=== PATIENT | male | born 1935 | race Caucasian/White ===

== ENCOUNTER 2017-08-08 22:56 | Emergency (ER) | payer MEDICARE ==
[~2017-08-08] VITALS: Ht 177.8 cm; Wt 88.9 kg
[~2017-08-08 22:56] MED LIST: BP MED
[2017-08-08] MEDS ORDERED: CENTRUM SILVER1 EAC2 PO (23:13)
[2017-08-08] MEDS ORDERED: ALBU90OI INH (23:13)
[2017-08-08] MEDS ORDERED: BUDE6HFA INH (23:13)
[2017-08-08] MEDS ORDERED: Penlac6.6 ML (23:22)
[2017-08-09 00:34] LABS: BASOPHILS ABSOLUTE AUTO 0.06 K/mm3 (0.00-0.23); BASOPHILS PERCENT AUTO 1 % (0-2); EOSINOPHILS ABSOLUTE AUTO 0.55 K/mm3 (0.00-0.68); EOSINOPHILS PERCENT AUTO 7 % (0-6); Hematocrit 40.1 % (37.0-53.0); IMMATURE GRAN ABSOLUTE AUTO 0.03 K/mm3 (0.00-0.10); IMMATURE GRAN PERCENT AUTO 0 % (0-1); LYMPHOCYTES ABSOLUTE AUTO 2.51 K/mm3 (0.84-5.20); LYMPHOCYTES PERCENT AUTO 32 % (21-46); MONOCYTES PERCENT AUTO 13 % (4-13); Mean Corpuscular HGB 34.7 pg (26.0-34.0); Mean Corpuscular HGB Conc 34.9 g/dL (31.5-36.5); Mean Corpuscular Volume 100 fL (80-100); NEUTROPHILS ABSOLUTE AUTO 3.83 K/mm3 (1.96-9.15); NEUTROPHILS PERCENT AUTO 48 % (41-73); RDW Standard Deviation 44.1 fL (35.1-46.3); Red Blood Cell Count 4.03 M/mm3 (4.30-5.90); White Blood Cell Count 7.98 K/mm3 (4.00-11.30)
[2017-08-09 00:37] LABS: Mean Platelet Volume 9.2 fL (9.1-12.4); Platelet Count 213 K/mm3 (150-400)
[2017-08-09 00:47] LABS: Alanine Aminotransfer (ALT/SGP 24 U/L (12-78); Albumin/Globulin Ratio 1.2 (0.8-1.8); Alk Phos 67 U/L (50-136); Anion Gap 6 mmol/L (6-16); Aspartate Aminotrans (AST/SGOT 22 U/L (12-37); Bilirubin, Total 0.4 mg/dL (0.1-1.0); Blood Urea Nitrogen 9 mg/dL (8-24); Bun/Creatinine Ratio 9.8 (12.0-20.0); CO2, Blood 32 mmol/L (21-32); Calcium, Blood 8.9 mg/dL (8.5-10.1); Chloride, Blood 92 mmol/L (98-108); Creatinine, Blood 0.92 mg/dL (0.60-1.20); Globulin, Blood 3.3 g/dL (2.2-4.0); Glomerular Filtration Rate >60 (60-); Glucose, Blood 100 mg/dL (70-99); Sodium, Blood 130 mmol/L (136-145); Total Protein, Blood 7.3 g/dL (6.4-8.2); Troponin I <0.015 ng/mL (0.000-0.040)
[2017-08-09 01:21] LABS: pH Blood Arterial 7.43 (7.35-7.45)
[2017-08-09] MEDS ORDERED: Prednisone20 MG PO (03:00)
== END 2017-08-09 03:25 | disposition home or self-care (01) ==
LOC: ER 22:56
PROVIDERS: Emergency Medicine
DX: J44.1 Chronic obstructive pulmonary disease with (acute) exacerbation (principal); I10 Essential (primary) hypertension; Z87.891 Personal history of nicotine dependence; Z88.8 Allergy status to other drugs, medicaments and biological substances; Z79.899 Other long term (current) drug therapy; Z79.52 Long term (current) use of systemic steroids
CPT/HCPCS: 36415; 36600; 71046; 80053; 82803; 84484; 85025; 93005; 93010; 94644; 99283

== ENCOUNTER 2017-08-15 19:34 | Inpatient (IN) | payer MEDICARE ==
[~2017-08-15] VITALS: Ht 175.3 cm; Wt 92.6 kg
[~2017-08-15 19:34] MED LIST changes: +ALBU90OI INH; +BUDE6HFA INH; +CENTRUM SILVER1 EAC2 PO; +Penlac6.6 ML; +Prednisone20 MG PO
[2017-08-15 20:31] LABS: BASOPHILS ABSOLUTE AUTO 0.01 K/mm3 (0.00-0.23); BASOPHILS PERCENT AUTO 0 % (0-2); EOSINOPHILS ABSOLUTE AUTO 0.04 K/mm3 (0.00-0.68); EOSINOPHILS PERCENT AUTO 0 % (0-6); Hematocrit 39.5 % (37.0-53.0); Hemoglobin 14.2 g/dL (13.5-17.5); IMMATURE GRAN PERCENT AUTO 1 % (0-1); LYMPHOCYTES PERCENT AUTO 18 % (21-46); MONOCYTES ABSOLUTE AUTO 1.53 K/mm3 (0.16-1.47); MONOCYTES PERCENT AUTO 13 % (4-13); Mean Corpuscular HGB 35.2 pg (26.0-34.0); Mean Corpuscular HGB Conc 35.9 g/dL (31.5-36.5); Mean Corpuscular Volume 98 fL (80-100); Mean Platelet Volume 8.9 fL (9.1-12.4); NEUTROPHILS ABSOLUTE AUTO 7.82 K/mm3 (1.96-9.15); NEUTROPHILS PERCENT AUTO 67 % (41-73); Platelet Count 228 K/mm3 (150-400); RDW Coefficient Variation 12.3 % (11.7-14.2); RDW Standard Deviation 44.6 fL (35.1-46.3); Red Blood Cell Count 4.03 M/mm3 (4.30-5.90)
[2017-08-15 20:47] LABS: International Normalized Ratio 1.04; Prothrombin Time Results 10.8 Sec (9.7-11.5)
[2017-08-15 20:55] LABS: Alanine Aminotransfer (ALT/SGP 26 U/L (12-78); Albumin, Blood 3.2 g/dL (3.4-5.0); Albumin/Globulin Ratio 1.1 (0.8-1.8); Alk Phos 55 U/L (50-136); Anion Gap 11 mmol/L (6-16); Aspartate Aminotrans (AST/SGOT 18 U/L (12-37); Bilirubin, Total 0.4 mg/dL (0.1-1.0); Blood Urea Nitrogen 27 mg/dL (8-24); Bun/Creatinine Ratio 19.3 (12.0-20.0); CO2, Blood 25 mmol/L (21-32); Calcium, Blood 8.5 mg/dL (8.5-10.1); Chloride, Blood 92 mmol/L (98-108); Globulin, Blood 2.9 g/dL (2.2-4.0); Glomerular Filtration Rate 52 (60-); Glucose, Blood 95 mg/dL (70-99); Sodium, Blood 128 mmol/L (136-145); Total Protein, Blood 6.1 g/dL (6.4-8.2); Troponin I <0.015 ng/mL (0.000-0.040)
[2017-08-15] MEDS ORDERED: GUAI600T33 PO (22:54)
[2017-08-16] LABS: Influenza A Negative (NEGATIVE); Influenza B Negative (NEGATIVE)
[2017-08-16 04:13] LABS: BASOPHILS ABSOLUTE AUTO 0.01 K/mm3 (0.00-0.23); BASOPHILS PERCENT AUTO 0 % (0-2); EOSINOPHILS ABSOLUTE AUTO 0.01 K/mm3 (0.00-0.68); EOSINOPHILS PERCENT AUTO 0 % (0-6); Hematocrit 38.2 % (37.0-53.0); Hemoglobin 13.5 g/dL (13.5-17.5); IMMATURE GRAN ABSOLUTE AUTO 0.09 K/mm3 (0.00-0.10); IMMATURE GRAN PERCENT AUTO 1 % (0-1); LYMPHOCYTES ABSOLUTE AUTO 0.76 K/mm3 (0.84-5.20); LYMPHOCYTES PERCENT AUTO 9 % (21-46); MONOCYTES ABSOLUTE AUTO 0.29 K/mm3 (0.16-1.47); MONOCYTES PERCENT AUTO 3 % (4-13); Mean Corpuscular HGB 34.7 pg (26.0-34.0); Mean Corpuscular HGB Conc 35.3 g/dL (31.5-36.5); Mean Corpuscular Volume 98 fL (80-100); NEUTROPHILS ABSOLUTE AUTO 7.35 K/mm3 (1.96-9.15); NEUTROPHILS PERCENT AUTO 86 % (41-73); Platelet Count 196 K/mm3 (150-400); RDW Coefficient Variation 12.3 % (11.7-14.2); RDW Standard Deviation 44.3 fL (35.1-46.3); Red Blood Cell Count 3.89 M/mm3 (4.30-5.90); White Blood Cell Count 8.51 K/mm3 (4.00-11.30)
[2017-08-16 04:44] LABS: Alanine Aminotransfer (ALT/SGP 27 U/L (12-78); Albumin, Blood 3.1 g/dL (3.4-5.0); Alk Phos 52 U/L (50-136); Anion Gap 7 mmol/L (6-16); Aspartate Aminotrans (AST/SGOT 11 U/L (12-37); Bilirubin, Total 0.6 mg/dL (0.1-1.0); Blood Urea Nitrogen 27 mg/dL (8-24); Bun/Creatinine Ratio 24.1 (12.0-20.0); CO2, Blood 27 mmol/L (21-32); Calcium, Blood 8.3 mg/dL (8.5-10.1); Chloride, Blood 93 mmol/L (98-108); Creatinine, Blood 1.12 mg/dL (0.60-1.20); Glomerular Filtration Rate >60 (60-); Glucose, Blood 108 mg/dL (70-99); Potassium, Blood 4.7 mmol/L (3.5-5.5); Sodium, Blood 127 mmol/L (136-145); Total Protein, Blood 6.1 g/dL (6.4-8.2)
[2017-08-16 20:10] LABS: Adenovirus F 40/41 Not Detected (NOT DETECT); Astrovirus Not Detected (NOT DETECT); Campylobacter Sp Not Detected (NOT DETECT); Cryptosporidium Not Detected (NOT DETECT); Cyclospora Cayetanensis Not Detected (NOT DETECT); E. Coli O157 Not Detected (NOT DETECT); Entamoeba Histolytica Not Detected (NOT DETECT); Enteroaggregative E. coli-EAEC Not Detected (NOT DETECT); Enteropathogenic E. coli-EPEC Not Detected (NOT DETECT); Enterotoxigenic E. coli-ETEC Not Detected (NOT DETECT); Giardia Lamblia Not Detected (NOT DETECT); Norovirus GI/GII Not Detected (NOT DETECT); Plesiomonas Shigelloides Not Detected (NOT DETECT); Rotavirus A Not Detected (NOT DETECT); Salmonella Sp Not Detected (NOT DETECT); Sapovirus Not Detected (NOT DETECT); Shiga Toxin-prod E. coli-STEC Not Detected (NOT DETECT); Shigella/Enteroin E. coli-EIEC Not Detected (NOT DETECT); Vibrio Cholerae Not Detected (NOT DETECT); Vibrio Sp Not Detected (NOT DETECT); Yersinia Enterocolitica Not Detected (NOT DETECT)
[2017-08-17 05:41] LABS: BASOPHILS ABSOLUTE AUTO 0.01 K/mm3 (0.00-0.23); BASOPHILS PERCENT AUTO 0 % (0-2); EOSINOPHILS PERCENT AUTO 0 % (0-6); Hemoglobin 13.3 g/dL (13.5-17.5); IMMATURE GRAN ABSOLUTE AUTO 0.21 K/mm3 (0.00-0.10); IMMATURE GRAN PERCENT AUTO 2 % (0-1); LYMPHOCYTES PERCENT AUTO 5 % (21-46); MONOCYTES ABSOLUTE AUTO 0.92 K/mm3 (0.16-1.47); MONOCYTES PERCENT AUTO 8 % (4-13); Mean Corpuscular HGB 35.3 pg (26.0-34.0); Mean Corpuscular HGB Conc 35.9 g/dL (31.5-36.5); Mean Corpuscular Volume 98 fL (80-100); Mean Platelet Volume 9.4 fL (9.1-12.4); NEUTROPHILS ABSOLUTE AUTO 10.56 K/mm3 (1.96-9.15); NEUTROPHILS PERCENT AUTO 86 % (41-73); Platelet Count 193 K/mm3 (150-400); RDW Coefficient Variation 12.3 % (11.7-14.2); RDW Standard Deviation 44.3 fL (35.1-46.3); Red Blood Cell Count 3.77 M/mm3 (4.30-5.90)
[2017-08-17 06:11] LABS: Alanine Aminotransfer (ALT/SGP 23 U/L (12-78); Albumin, Blood 3.2 g/dL (3.4-5.0); Albumin/Globulin Ratio 1.3 (0.8-1.8); Alk Phos 46 U/L (50-136); Anion Gap 10 mmol/L (6-16); Aspartate Aminotrans (AST/SGOT 12 U/L (12-37); Bilirubin, Total 0.8 mg/dL (0.1-1.0); Blood Urea Nitrogen 22 mg/dL (8-24); Bun/Creatinine Ratio 23.9 (12.0-20.0); CO2, Blood 24 mmol/L (21-32); Calcium, Blood 8.5 mg/dL (8.5-10.1); Chloride, Blood 95 mmol/L (98-108); Creatinine, Blood 0.92 mg/dL (0.60-1.20); Globulin, Blood 2.5 g/dL (2.2-4.0); Glomerular Filtration Rate >60 (60-); Glucose, Blood 123 mg/dL (70-99); Potassium, Blood 3.9 mmol/L (3.5-5.5); Sodium, Blood 129 mmol/L (136-145); Total Protein, Blood 5.7 g/dL (6.4-8.2)
[2017-08-17] MEDS ORDERED: ALBU3IS INH (12:31)
[2017-08-17] MEDS ORDERED: CHLO10 PO (12:31)
[2017-08-17] MEDS ORDERED: PRED10 PO (12:33)
[2017-08-17] MEDS ORDERED: LEVFLO500 PO (12:34)
== END 2017-08-17 13:19 | disposition home or self-care (01) | DRG 312 ==
LOC: ER 19:34 → PCU 21:48
PROVIDERS: Emergency Medicine; Internal Medicine
DX: R55 Syncope and collapse (principal); J96.21 Acute and chronic respiratory failure with hypoxia; N17.9 Acute kidney failure, unspecified; J44.0 Chronic obstructive pulmonary disease with (acute) lower respiratory infection; E87.1 Hypo-osmolality and hyponatremia; J44.1 Chronic obstructive pulmonary disease with (acute) exacerbation; E86.0 Dehydration; J20.9 Acute bronchitis, unspecified; F10.20 Alcohol dependence, uncomplicated; I10 Essential (primary) hypertension; R19.7 Diarrhea, unspecified; Z66 Do not resuscitate; Z88.8 Allergy status to other drugs, medicaments and biological substances; Z79.51 Long term (current) use of inhaled steroids; Z79.899 Other long term (current) drug therapy; Z99.81 Dependence on supplemental oxygen; Z87.891 Personal history of nicotine dependence
CPT/HCPCS: 36415; 70450; 71046; 71260; 80053; 83605; 83880; 84145; 84484; 85025; 85610; 85730; 87040; 87507; 87804; 93005; 93010; 93306; 93880; 94640; 94760; 96374; 99285; J0696; J1650; J1956; J2930; J7030; Q9967

== ENCOUNTER 2017-10-23 22:58 | Inpatient (IN) | payer MEDICARE ==
[~2017-10-23] VITALS: Ht 177.8 cm; Wt 86.0 kg
[~2017-10-23 22:58] MED LIST changes: +ALBU3IS INH; +CHLO10 PO; +GUAI600T33 PO; +LEVFLO500 PO; +PRED10 PO
[2017-10-23 23:15] LABS: BASOPHILS ABSOLUTE AUTO 0.06 K/mm3 (0.00-0.23); BASOPHILS PERCENT AUTO 1 % (0-2); EOSINOPHILS ABSOLUTE AUTO 1.16 K/mm3 (0.00-0.68); EOSINOPHILS PERCENT AUTO 10 % (0-6); Hematocrit 39.9 % (37.0-53.0); Hemoglobin 13.7 g/dL (13.5-17.5); IMMATURE GRAN ABSOLUTE AUTO 0.04 K/mm3 (0.00-0.10); IMMATURE GRAN PERCENT AUTO 0 % (0-1); LYMPHOCYTES ABSOLUTE AUTO 2.41 K/mm3 (0.84-5.20); LYMPHOCYTES PERCENT AUTO 20 % (21-46); MONOCYTES ABSOLUTE AUTO 1.57 K/mm3 (0.16-1.47); MONOCYTES PERCENT AUTO 13 % (4-13); Mean Corpuscular HGB 33.1 pg (26.0-34.0); Mean Corpuscular HGB Conc 34.3 g/dL (31.5-36.5); Mean Corpuscular Volume 96 fL (80-100); Mean Platelet Volume 9.1 fL (9.1-12.4); NEUTROPHILS ABSOLUTE AUTO 6.62 K/mm3 (1.96-9.15); NEUTROPHILS PERCENT AUTO 56 % (41-73); Platelet Count 271 K/mm3 (150-400); RDW Coefficient Variation 12.1 % (11.7-14.2); RDW Standard Deviation 42.8 fL (35.1-46.3); Red Blood Cell Count 4.14 M/mm3 (4.30-5.90); White Blood Cell Count 11.86 K/mm3 (4.00-11.30)
[2017-10-23 23:16] LABS: PCO2 Arterial 52.8 mmHg (35-45); PO2 Arterial 135 mmHg (80-100); pH Blood Arterial 7.32 (7.35-7.45)
[2017-10-23 23:34] LABS: Alanine Aminotransfer (ALT/SGP 25 U/L (12-78); Albumin, Blood 3.6 g/dL (3.4-5.0); Albumin/Globulin Ratio 1.1 (0.8-1.8); Alk Phos 70 U/L (50-136); Anion Gap 5 mmol/L (6-16); Aspartate Aminotrans (AST/SGOT 21 U/L (12-37); Bilirubin, Total 0.4 mg/dL (0.1-1.0); Blood Urea Nitrogen 9 mg/dL (8-24); Bun/Creatinine Ratio 11.6 (12.0-20.0); CO2, Blood 28 mmol/L (21-32); Calcium, Blood 9.2 mg/dL (8.5-10.1); Chloride, Blood 100 mmol/L (98-108); Creatinine, Blood 0.78 mg/dL (0.60-1.20); Globulin, Blood 3.3 g/dL (2.2-4.0); Glomerular Filtration Rate >60 (60-); Glucose, Blood 112 mg/dL (70-99); Potassium, Blood 4.3 mmol/L (3.5-5.5); Sodium, Blood 133 mmol/L (136-145); Total Protein, Blood 6.9 g/dL (6.4-8.2); Troponin I <0.015 ng/mL (0.000-0.040)
[2017-10-23] MEDS ORDERED: LOSARTAN-HCTZ1 EAC2 PO (23:56)
[2017-10-24] MEDS ORDERED: LOSA50 PO (02:45)
[2017-10-24 07:30] LABS: BASOPHILS ABSOLUTE AUTO 0.02 K/mm3 (0.00-0.23); BASOPHILS PERCENT AUTO 0 % (0-2); EOSINOPHILS ABSOLUTE AUTO 0.13 K/mm3 (0.00-0.68); EOSINOPHILS PERCENT AUTO 2 % (0-6); Hematocrit 35.8 % (37.0-53.0); Hemoglobin 12.5 g/dL (13.5-17.5); IMMATURE GRAN ABSOLUTE AUTO 0.03 K/mm3 (0.00-0.10); IMMATURE GRAN PERCENT AUTO 0 % (0-1); LYMPHOCYTES ABSOLUTE AUTO 0.35 K/mm3 (0.84-5.20); LYMPHOCYTES PERCENT AUTO 5 % (21-46); MONOCYTES PERCENT AUTO 3 % (4-13); Mean Corpuscular HGB 32.9 pg (26.0-34.0); Mean Corpuscular HGB Conc 34.9 g/dL (31.5-36.5); Mean Corpuscular Volume 94 fL (80-100); Mean Platelet Volume 9.4 fL (9.1-12.4); NEUTROPHILS ABSOLUTE AUTO 6.97 K/mm3 (1.96-9.15); NEUTROPHILS PERCENT AUTO 91 % (41-73); Platelet Count 225 K/mm3 (150-400); RDW Coefficient Variation 12.2 % (11.7-14.2); RDW Standard Deviation 42.5 fL (35.1-46.3)
[2017-10-24 07:59] LABS: Albumin, Blood 3.2 g/dL (3.4-5.0); Anion Gap 7 mmol/L (6-16); Blood Urea Nitrogen 9 mg/dL (8-24); Bun/Creatinine Ratio 12.8 (12.0-20.0); CO2, Blood 26 mmol/L (21-32); Calcium, Blood 8.8 mg/dL (8.5-10.1); Chloride, Blood 100 mmol/L (98-108); Glomerular Filtration Rate >60 (60-); Glucose, Blood 115 mg/dL (70-99); Phosphorus, Blood 2.4 mg/dL (2.5-4.9); Potassium, Blood 4.2 mmol/L (3.5-5.5); Sodium, Blood 133 mmol/L (136-145)
[2017-10-25 04:59] LABS: PCO2 Arterial 37.2 mmHg (35-45); PO2 Arterial 88.6 mmHg (80-100); pH Blood Arterial 7.46 (7.35-7.45)
[2017-10-27 04:35] LABS: BASOPHILS ABSOLUTE AUTO 0.01 K/mm3 (0.00-0.23); BASOPHILS PERCENT AUTO 0 % (0-2); EOSINOPHILS PERCENT AUTO 0 % (0-6); Hematocrit 37.3 % (37.0-53.0); IMMATURE GRAN ABSOLUTE AUTO 0.05 K/mm3 (0.00-0.10); IMMATURE GRAN PERCENT AUTO 0 % (0-1); LYMPHOCYTES ABSOLUTE AUTO 0.81 K/mm3 (0.84-5.20); LYMPHOCYTES PERCENT AUTO 7 % (21-46); MONOCYTES ABSOLUTE AUTO 1.22 K/mm3 (0.16-1.47); MONOCYTES PERCENT AUTO 10 % (4-13); Mean Corpuscular HGB 32.7 pg (26.0-34.0); Mean Corpuscular HGB Conc 34.9 g/dL (31.5-36.5); Mean Corpuscular Volume 94 fL (80-100); Mean Platelet Volume 9.3 fL (9.1-12.4); NEUTROPHILS ABSOLUTE AUTO 9.59 K/mm3 (1.96-9.15); NEUTROPHILS PERCENT AUTO 82 % (41-73); Platelet Count 277 K/mm3 (150-400); RDW Coefficient Variation 12.3 % (11.7-14.2); RDW Standard Deviation 42.8 fL (35.1-46.3); Red Blood Cell Count 3.97 M/mm3 (4.30-5.90); White Blood Cell Count 11.68 K/mm3 (4.00-11.30)
[2017-10-27 04:53] LABS: Alanine Aminotransfer (ALT/SGP 28 U/L (12-78); Albumin, Blood 3.2 g/dL (3.4-5.0); Albumin/Globulin Ratio 1.2 (0.8-1.8); Alk Phos 43 U/L (50-136); Anion Gap 6 mmol/L (6-16); Aspartate Aminotrans (AST/SGOT 21 U/L (12-37); Bilirubin, Total 0.7 mg/dL (0.1-1.0); Blood Urea Nitrogen 27 mg/dL (8-24); CO2, Blood 28 mmol/L (21-32); Calcium, Blood 8.9 mg/dL (8.5-10.1); Chloride, Blood 98 mmol/L (98-108); Creatinine, Blood 1.04 mg/dL (0.60-1.20); Globulin, Blood 2.7 g/dL (2.2-4.0); Glomerular Filtration Rate >60 (60-); Glucose, Blood 105 mg/dL (70-99); Potassium, Blood 3.9 mmol/L (3.5-5.5); Sodium, Blood 132 mmol/L (136-145); Total Protein, Blood 5.9 g/dL (6.4-8.2)
[2017-10-27] MEDS ORDERED: FOLI1 PO (11:48)
[2017-10-27] MEDS ORDERED: LEVFLO500 PO (11:48)
[2017-10-27] MEDS ORDERED: LOSARTAN-HCTZ1 EACH PO (11:49)
[2017-10-27] MEDS ORDERED: PRED10 PO (11:51)
[2017-10-27] MEDS ORDERED: THIA100 PO (11:52)
== END 2017-10-27 13:10 | disposition home or self-care (01) | DRG 193 ==
LOC: ER 22:58 → PCU 23:06 → MEDS 10-26 22:05
PROVIDERS: Emergency Medicine; Family Medicine; Internal Medicine
PROC: 5A09357 Assistance with Respiratory Ventilation, Less than 24 Consecutive Hours, Continuous Positive Airway Pressure (ICD-10-PCS; principal; 2017-10-23)
DX: J18.9 Pneumonia, unspecified organism (principal); J96.21 Acute and chronic respiratory failure with hypoxia; J96.22 Acute and chronic respiratory failure with hypercapnia; E87.2 Acidosis; E87.1 Hypo-osmolality and hyponatremia; J44.1 Chronic obstructive pulmonary disease with (acute) exacerbation; J44.0 Chronic obstructive pulmonary disease with (acute) lower respiratory infection; J20.9 Acute bronchitis, unspecified; I10 Essential (primary) hypertension; Z66 Do not resuscitate; Z99.81 Dependence on supplemental oxygen; Z79.899 Other long term (current) drug therapy; Z87.891 Personal history of nicotine dependence; Z88.8 Allergy status to other drugs, medicaments and biological substances
CPT/HCPCS: 36415; 36600; 71045; 80053; 80069; 82803; 83605; 83880; 84484; 85025; 87040; 87070; 87205; 93005; 93010; 94640; 94660; 94760; 94762; 96361; 96365; 97161; 97165; 99285; G8978; G8979; G8980; G8987; G8988; G8989; J0360; J1956; J2920; J2930; J7030

== ENCOUNTER 2017-12-07 23:43 | Emergency (ER) | payer MEDICARE ==
[~2017-12-07] VITALS: Ht 180.3 cm; Wt 79.4 kg
[~2017-12-07 23:43] MED LIST changes: +FOLI1 PO; +LOSA50 PO; +LOSARTAN-HCTZ1 EAC2 PO; +LOSARTAN-HCTZ1 EACH PO; +THIA100 PO
[2017-12-08 00:20] LABS: BASOPHILS ABSOLUTE AUTO 0.04 K/mm3 (0.00-0.23); BASOPHILS PERCENT AUTO 0 % (0-2); EOSINOPHILS ABSOLUTE AUTO 1.17 K/mm3 (0.00-0.68); EOSINOPHILS PERCENT AUTO 13 % (0-6); Hematocrit 34.7 % (37.0-53.0); Hemoglobin 11.7 g/dL (13.5-17.5); IMMATURE GRAN ABSOLUTE AUTO 0.02 K/mm3 (0.00-0.10); IMMATURE GRAN PERCENT AUTO 0 % (0-1); LYMPHOCYTES ABSOLUTE AUTO 1.16 K/mm3 (0.84-5.20); LYMPHOCYTES PERCENT AUTO 13 % (21-46); MONOCYTES ABSOLUTE AUTO 0.99 K/mm3 (0.16-1.47); MONOCYTES PERCENT AUTO 11 % (4-13); Mean Corpuscular HGB 31.1 pg (26.0-34.0); Mean Corpuscular HGB Conc 33.7 g/dL (31.5-36.5); Mean Corpuscular Volume 92 fL (80-100); Mean Platelet Volume 9.3 fL (9.1-12.4); NEUTROPHILS PERCENT AUTO 63 % (41-73); Platelet Count 218 K/mm3 (150-400); RDW Coefficient Variation 13.3 % (11.7-14.2); RDW Standard Deviation 45.2 fL (35.1-46.3); Red Blood Cell Count 3.76 M/mm3 (4.30-5.90); White Blood Cell Count 9.08 K/mm3 (4.00-11.30)
[2017-12-08] MEDS ORDERED: GUAI600T33 PO (00:23)
[2017-12-08 00:38] LABS: Alanine Aminotransfer (ALT/SGP 22 U/L (12-78); Albumin, Blood 3.2 g/dL (3.4-5.0); Alk Phos 65 U/L (50-136); Anion Gap 9 mmol/L (6-16); Aspartate Aminotrans (AST/SGOT 19 U/L (12-37); Bilirubin, Total 0.3 mg/dL (0.1-1.0); Blood Urea Nitrogen 8 mg/dL (8-24); Bun/Creatinine Ratio 10.6 (12.0-20.0); CO2, Blood 28 mmol/L (21-32); Calcium, Blood 9.4 mg/dL (8.5-10.1); Chloride, Blood 98 mmol/L (98-108); Creatinine, Blood 0.75 mg/dL (0.60-1.20); Globulin, Blood 3.1 g/dL (2.2-4.0); Glomerular Filtration Rate >60 (60-); Glucose, Blood 98 mg/dL (70-99); Potassium, Blood 3.5 mmol/L (3.5-5.5); Sodium, Blood 135 mmol/L (136-145); Total Protein, Blood 6.3 g/dL (6.4-8.2)
[2017-12-08] MEDS ORDERED: Prednisone20 MG PO (01:41)
== END 2017-12-08 02:40 | disposition home or self-care (01) ==
LOC: ER 23:43
DX: J44.1 Chronic obstructive pulmonary disease with (acute) exacerbation (principal); I10 Essential (primary) hypertension; J44.9 Chronic obstructive pulmonary disease, unspecified; Z88.8 Allergy status to other drugs, medicaments and biological substances; Z79.899 Other long term (current) drug therapy; Z79.52 Long term (current) use of systemic steroids
CPT/HCPCS: 71046; 80053; 85025; 93005; 93010; 94640; 99284

== ENCOUNTER → 2023-10-24 | Outpatient (CLI) | payer MEDICARE | END | disposition home or self-care (01) | LOC: LAB SHORT 14:07 → LAB 14:07 | DX: N39.0 Urinary tract infection, site not specified (principal) ==